=== PATIENT | female | born 1995 | race Two or more races ===

== ENCOUNTER → 2017-07-12 | Outpatient (REF) | payer OTHER | LOC: M SFHCLERA 20:45 | PROVIDERS: ATTEND Physician Assistant | DX: J02.9 Acute pharyngitis, unspecified (principal) ==

== ENCOUNTER → 2017-08-29 | Outpatient (REF) | payer OTHER | LOC: M LAB REF 10:26 | PROVIDERS: ATTEND Physician Assistant Medical | DX: N39.0 Urinary tract infection, site not specified (principal) ==

== ENCOUNTER → 2017-10-22 | Outpatient (REF) | payer OTHER, MEDICAID | LOC: M LAB REF 13:28 | PROVIDERS: ATTEND Nurse Practitioner Adult Health | DX: F41.8 Other specified anxiety disorders (principal) ==

== ENCOUNTER → 2017-12-23 | Outpatient (REF) | payer OTHER, MEDICAID ==
[2017-12-23 17:48] LABS: HCG, SERUM QUANTITATIVE 502 MIU/ML
== END ==
LOC: M LAB REF 16:35
DX: Z32.00 Encounter for pregnancy test, result unknown (principal)
CPT/HCPCS: 84702

== ENCOUNTER → 2018-01-14 | Outpatient (CLI) | payer OTHER ==
[2018-01-14 17:26] LABS: BASO % 0.3 % (0.0-1.0); EOS # 0.1 10^3/uL (0.0-0.50); EOS % 0.9 % (0.0-3.0); HEMATOCRIT 37.5 % (36.0-47.0); HEMOGLOBIN 12.7 g/dl (12.0-16.0); IMMATURE GRANULOCYTE % 0.4 % (0-3.0); LYMPH # 2.3 10^3/uL (1.5-6.5); LYMPH % 22.2 % (24.0-44.0); MEAN CORPUSCULAR HEMOGLOBIN 29.4 pg (27.0-33.0); MEAN CORPUSCULAR HGB CONC 33.9 g/dl (32.0-36.5); MEAN CORPUSCULAR VOLUME 86.8 fl (80.0-96.0); MONO # 0.7 10^3/uL (0.0-0.8); MONO % 6.9 % (0.0-5.0); NEUTROPHILS # 7.1 10^3/uL (1.8-7.7); NEUTROPHILS % 69.3 % (36.0-66.0); PLATELET COUNT, AUTOMATED 285 10^3/uL (150-450); RED BLOOD COUNT 4.32 10^6/uL (4.00-5.40); RED CELL DISTRIBUTION WIDTH 12.2 % (11.5-14.5); WHITE BLOOD COUNT 10.2 10^3/uL (4.0-10.0)
[2018-01-15 00:26] LABS: CHLAMYDIA DNA AMPLIFICATION NEGATIVE (NEGATIVE); GC DNA AMPLIFICATION NEGATIVE (NEGATIVE)
[2018-01-15 10:17] LABS: RUBELLA IgG QUALITATIVE IMMUNE (IMMUNE)
[2018-01-15 10:20] LABS: HBsAg Prenatal NEGATIVE (NEGATIVE)
[2018-01-15 10:48] LABS: HIV 1&2 SCREEN CENTAUR NEGATIVE (NEGATIVE)
== END ==
LOC: M SMT 15:22
DX: Z34.81 Encounter for supervision of other normal pregnancy, first trimester (principal); Z3A.01 Less than 8 weeks gestation of pregnancy
CPT/HCPCS: 86762

== ENCOUNTER → 2018-03-31 | Outpatient (REF) | payer OTHER | LOC: M LAB REF 16:56 | DX: R30.0 Dysuria (principal) ==

== ENCOUNTER → 2018-04-01 | Outpatient (CLI) | payer OTHER | LOC: M RAD 15:49 | DX: Z34.82 Encounter for supervision of other normal pregnancy, second trimester (principal); Z36.89 Encounter for other specified antenatal screening; Z3A.19 19 weeks gestation of pregnancy | CPT/HCPCS: 76811 ==